=== PATIENT | male | born 1970 | race African-American/Black ===

== ENCOUNTER 2016-06-14 01:56 | Emergency (ER) | payer OTHER ==
[~2016-06-14] VITALS: Ht 193 cm; Wt 108.9 kg
[~2016-06-14 01:56] MED LIST: ALBUTEROL0.09 MG/A1 INH; GOOD SENSE IBU200 MG PO; LOSARTAN-HCTZ 50-12. PO; NORVASC 5MG TAB5 MG PO; PHENERGAN25 M1 PO; ZOFRAN4 M1 PO
--- NOTE | 2016-06-14 02:05 | ED GENERAL ADULT ---
History of Present Illness General Chief Complaint: General Adult Stated Complaint: " HICCUPS X4DAYS, CP RADIATES TO LT SIDE OF NECK" Source: patient Exam Limitations: no limitations Vital Signs & Intake/Output Vital Signs & Intake/Output Vital Signs Date Time Temp Pulse Resp B/P B/P Pulse O2 O2 Flow FiO2 Mean Ox Delivery Rate 06/14 0211 97.2 80 18 168/69 99 Allergies Coded Allergies: NO KNOWN ALLERGIES (10/21/12) Reconcile Medications Albuterol Sulfate (Ventolin Hfa) 90 MCG HFA.AER.AD 2 PUF INH Q4-6 PRN PRN cough/wheeze Albuterol Sulfate (Albuterol Sulfate Hfa) 0.09 MG/Actuation DANIS 2 PUFF INH Q4- 6 PRN PRN SHORTNESS OF BREATH 90 MCG PER PUFF Amlodipine (Norvasc 5MG Tab) 5 MG TAB 1 TAB PO DAILY BP (Reported) Amoxicillin/Potassium Clav (Augmentin 875-125 Tablet) 875 MG-125 MG TABLET 1 TAB PO BID bronchitis Benzonatate (Tessalon Perle) 100 MG CAPSULE 1-2 CAP PO TID PRN cough Chlorpromazine HCl 25 MG TABLET 1 TAB PO TID PRN hiccups Ibuprofen 200 MG TAB 3 TAB PO PRN PAIN (Reported) Prednisone 50 MG TABLET 1 TAB PO DAILY bronchitis Promethazine Hydrochloride (Phenergan) 25 MG TAB 1-2 TAB PO Q6P PRN HEADACHE/ NAUSEA/VOMITING Triage Nurses Notes Reviewed? yes Onset: Gradual Duration: day(s): Timing: recent history Injury Environment: home Severity: mild, moderate Modifying Factors: Worsens With: other (worse with hiccups). Associated Symptoms: chest wall pain HPI: 45-year-old gentleman history of hypertension presents with intractable hiccups for the past 4 days. He states that he has not been able to sleep in 4 days. He notes a dry cough without phlegm or wheezing. He states, "every time I have the hiccups I feel pain across the top part of the muscles in my chest." He has no dizziness diaphoresis syncopal type symptoms or radiation. He has no shortness of breath. He is otherwise well. Past History Travel History Traveled to [place] past 21 day No Medical History Any Pertinent Medical History? see below for history Cardiovascular: hypertension Surgical History Surgical History: non-contributory Psychosocial History What is your primary language Turkish Family History Hx Contributory? No Review of Systems Review of Systems Constitutional: Reports: no symptoms. EENTM: Reports: no symptoms. Respiratory: Reports: no symptoms. Cardiovascular: Reports: no symptoms. GI: Reports: no symptoms. Genitourinary: Reports: no symptoms. Musculoskeletal: Reports: no symptoms. Skin: Reports: no symptoms. Neurological/Psychological: Reports: no symptoms. Hematologic/Endocrine: Reports: no symptoms. Immunologic/Allergic: Reports: no symptoms. All Other Systems: Reviewed and Negative Physical Exam Physical Exam General Appearance: well developed/nourished, mild distress Head: atraumatic, normal appearance Eyes: Bilateral: normal appearance. Ears, Nose, Throat: normal pharynx, normal ENT inspection Neck: normal inspection, supple, full range of motion Respiratory: normal breath sounds, chest non-tender, no respiratory distress, quiet respiration, lungs clear Cardiovascular: regular rate/rhythm Gastrointestinal: normal bowel sounds, soft, non-tender, no organomegaly Back: normal inspection Extremities: normal inspection Neurologic/Psych: no motor/sensory deficits, awake, alert, oriented x 3 Skin: intact, normal color, warm/dry Core Measures ACS in differential dx? No CVA/TIA Diagnosis: No Severe Sepsis Present: No Septic Shock Present: No Progress Differential Diagnoses I considered the following diagnoses in my evaluation of the patient: Hiccups, bronchitis, chest wall pain, CO, PE, pneumonia versus other. Plan of Care: Orders Procedure Date/time Status TROPONIN LEVEL 06/14 157 Complete D-DIMER 06/14 157 Complete COMPREHENSIVE METABOLIC PANEL 06/14 157 Complete CBC WITHOUT DIFFERENTIAL 06/14 157 Complete EKG 06/14 157 Active Current Medications Sig/Ismael Start time Last Medication Dose Stop Time Status Admin Amoxicillin/ 1,000 MG ONCE ONE 06/14 429 UNVr Clavulanate Potassium 06/14 430 (Augmentin) Laboratory Tests 06/14/16 0203: Anion Gap 12, Estimated GFR > 60, BUN/Creatinine Ratio 18.9, Glucose 109 H, Calcium 9.5, Total Bilirubin 0.5, AST 44, ALT 53, Alkaline Phosphatase 74, Troponin I < 0.01, Total Protein 7.4, Albumin 4.2, Globulin 3.2, Albumin/ Globulin Ratio 1.3, D-Dimer < 200, CBC w Diff NO MAN DIFF REQ, RBC 4.05 L, MCV 89.1, MCH 30.3, RDW 12.0, MPV 7.9, Gran % 60.9, Lymphocytes % 27.8, Monocytes % 8.8, Eosinophils % 2.0, Basophils % 0.5, Absolute Granulocytes 3.6, Absolute Lymphocytes 1.7, Absolute Monocytes 0.5, Absolute Eosinophils 0.1, Absolute Basophils 0, PUBS MCHC 34.0 Diagnostic Imaging: Viewed by Me: Radiology Read. Discussed w/RAD: Radiology Read. CXR Impression: no acute abnormality, no infiltrates, normal size heart, normal mediastinum Initial ED EKG: normal axis, normal intervals, normal p-waves, normal QRS complex, normal sinus rhythm Comments: PATIENT: DREW QUINTERO PRESENT AGE: 45 PATIENT ACCOUNT NO: [id number] : 69 LOCATION: [facility] ORDERING PHYSICIAN: JANES MEJIA MD SERVICE DATE: 06/14/16 EXAM TYPE: RAD - XRY-PORTABLE CHEST XRAY EXAMINATION: XR PORTABLE CHEST CLINICAL INFORMATION: Chest pain COMPARISON: 03/17/2015 TECHNIQUE: Portable frontal view of the chest was obtained. FINDINGS: Cardiac leads overlie the chest. Mild elevation of the left hemidiaphragm. No consolidation, edema, or effusion. No pneumothorax. The cardiomediastinal silhouette is within normal limits. No acute osseous abnormality. IMPRESSION: No acute pulmonary findings. DICTATED BY: DAJA PANDA MD DATE/TIME DICTATED:06/14/16229 GLOBAL CATEGORY MANAGER:GIANFRANCO DATE/TIME TRANSCRIBED:06/14/16229 CONFIDENTIAL, DO NOT COPY WITHOUT APPROPRIATE AUTHORIZATION. <Electronically signed in Other Vendor System> SIGNED BY: DAJA PANDA MD 06/14 Departure Departure Disposition: HOME OR SELF CARE Condition: Stable Clinical Impression Primary Impression: Intractable hiccups Secondary Impressions: Bronchitis Referrals: FERNY PACK MD (PCP/Family) Departure Forms: Customer Survey General Discharge Information Prescriptions: Current Visit Scripts Chlorpromazine HCl 1 TAB PO TID PRN hiccups #30 TAB Ref 1 Prednisone 1 TAB PO DAILY #5 TAB Benzonatate (Tessalon Perle) 1-2 CAP PO TID PRN cough #30 CAP Ref 1 Albuterol Sulfate (Ventolin Hfa) 2 PUF INH Q4-6 PRN PRN cough/wheeze #1 INHAL Ref 1 Amoxicillin/Potassium Clav (Augmentin 875-125 Tablet) 1 TAB PO BID #20 TAB Comments 06/14/16, 4:26am... pt feeling better after thorazine... will treat for bronchitis as well as hiccups... pt to follow up with pmd. pt counseled to return immediately if symptoms recur or worsen. Critical Care Note Critical Care Note Critical Care Time: non-applicable
[2016-06-14 02:12] LABS: ABSOLUTE BASOPHIL COUNT 0 /CUMM (0.0-0.2); ABSOLUTE EOSINOPHIL COUNT 0.1 /CUMM (0.0-0.7); ABSOLUTE GRANULOCYTE CT 3.6 /CUMM (1.4-6.5); ABSOLUTE LYMPH COUNT 1.7 /CUMM (1.2-3.4); ABSOLUTE MONOCYTE COUNT 0.5 /CUMM (0.10-0.60); BASOPHIL % 0.5 % (0.0-2.0); GRANULOCYTE % 60.9 % (42.2-75.2); HEMATOCRIT 36.1 % (42-52); MEAN CORPUSCULAR HGB 30.3 PG (27.0-31.0); MEAN CORPUSCULAR VOLUME 89.1 FL (80.0-94.0); MEAN PLATELET VOLUME 7.9 FL (7.4-10.4); PLATELET COUNT 272 /CUMM (130-400); RED BLOOD CELL CT 4.05 /CUMM (4.70-6.10); WHITE BLOOD CELL COUNT 5.9 /CUMM (4.8-10.8)
--- NOTE | 2016-06-14 02:36 | RADIOLOGY REPORT ---
EXAMINATION: XR PORTABLE CHEST CLINICAL INFORMATION: Chest pain COMPARISON: 03/17/2015 TECHNIQUE: Portable frontal view of the chest was obtained. FINDINGS: Cardiac leads overlie the chest. Mild elevation of the left hemidiaphragm. No consolidation, edema, or effusion. No pneumothorax. The cardiomediastinal silhouette is within normal limits. No acute osseous abnormality. IMPRESSION: No acute pulmonary findings.
[2016-06-14] MEDS ORDERED: CHLORPROMAZINE25 M2 PO (04:22)
[2016-06-14] MEDS ORDERED: VENTOLIN HFA18 GM INH (04:22)
[2016-06-14] MEDS ORDERED: AUGMENTIN 875-1 EACH PO (04:22)
[2016-06-14] MEDS ORDERED: TESSALON PERLE100 M1 PO (04:22)
[2016-06-14] MEDS ORDERED: PREDNISONE50 M1 PO (04:22)
[2016-06-14 04:28] VITALS: BP 155/56
== END 2016-06-14 04:30 ==
LOC: ERH 01:56
PROVIDERS: Pediatrics
DX: J40 Bronchitis, not specified as acute or chronic (principal); R06.6 Hiccough
CPT/HCPCS: 1263; 93005; 93010; 96374; 96375; J1885